=== PATIENT | male | born 1955 | race Caucasian/White ===

== ENCOUNTER 2024-02-06 00:30 | Emergency (ER) | payer MEDICARE, OTHER ==
[~2024-02-06] VITALS: Ht 177.8 cm; Wt 65.5 kg
[2024-02-06 00:40] VITALS: BP 142/89; TEMP 97.8
[2024-02-06] MEDS ORDERED: Lido/EPI/Tetrac Gel 3 ML SYRINGE TOP ONE (01:15)
[2024-02-06] MEDS ORDERED: Lidocaine 1% w EPI (1:100,000) 20 ML Multi-Dose VIAL SQ ONE (05:00)
[2024-02-06] MEDS ORDERED: CEPHALEXIN500 M1 PO (07:31)
[2024-02-06] MEDS ORDERED: Cephalexin 500 MG CAP PO ONE (07:45)
[2024-02-06 08:30] VITALS: PULSE 82
== END 2024-02-06 08:30 | disposition home or self-care (01) ==
LOC: COL.ER 00:30
DX: S62.307A Unspecified fracture of fifth metacarpal bone, left hand, initial encounter for closed fracture (principal); S05.41XA Penetrating wound of orbit with or without foreign body, right eye, initial encounter; S01.111A Laceration without foreign body of right eyelid and periocular area, initial encounter; Z23 Encounter for immunization; W18.30XA Fall on same level, unspecified, initial encounter; W22.8XXA Striking against or struck by other objects, initial encounter; Y93.01 Activity, walking, marching and hiking